=== PATIENT | male | born 2000 | race Caucasian/White ===

== ENCOUNTER → 2020-08-05 | Outpatient (CLI) | payer BC ==
[~2020-08-05] MED LIST: ZOFR4TAB16 PO
== END ==
LOC: M OUTALCOH 08:57
PROVIDERS: ATTEND Psychiatry & Neurology Psychiatry
DX: F11.20 Opioid dependence, uncomplicated (principal)

== ENCOUNTER 2020-08-10 10:10 | Emergency (ER) | payer BC ==
[~2020-08-10] VITALS: Ht 162.6 cm; Wt 51.4 kg
--- OUTSIDE RECORDS SUMMARY | 2020-08-10 11:06 | CCD ---
Author Author [facility] Organization [facility] Address Unknown Phone Unavailable Support Name Relationship Address Phone ULISSES ARDON Next Of Kin [address] [place] [address] [place] [address] REHAN SANTIAGO Next Of Kin Unknown Re-disclosure Warning The records that you are about to access may contain information from federally-assisted alcohol or drug abuse programs. If such information is present, then the following federally mandated warning applies: This information has been disclosed to you from records protected by federal confidentiality rules (42 CFR part 2). The federal rules prohibit you from making any further disclosure of this information unless further disclosure is expressly permitted by the written consent of the person to whom it pertains or as otherwise permitted by 42 CFR part 2. A general authorization for the release of medical or other information is NOT sufficient for this purpose. The Federal rules restrict any use of the information to criminally investigate or prosecute any alcohol or drug abuse patient.The records that you are about to access may contain highly sensitive health information, the redisclosure of which is protected by Article 27-F of the [facility] Public Health law. If you continue you may have access to information: Regarding HIV / AIDS; Provided by facilities licensed or operated by the [facility] Office of Mental Health; or Provided by the [facility] Office for People With Developmental Disabilities. If such information is present, then the following [facility] mandated warning applies: This information has been disclosed to you from confidential records which are protected by state law. State law prohibits you from making any further disclosure of this information without the specific written consent of the person to whom it pertains, or as otherwise permitted by law. Any unauthorized further disclosure in violation of state law may result in a fine or assisted sentence or both. A general authorization for the release of medical or other information is NOT sufficient authorization for further disc losure. Encounters Encounter Providers Location Date Indications Data Source(s ) Outpatient ALL 04/23/2020 05:49:03 PM EDT [facility] Outpatient ALL 04/23/2020 09:52:03 AM EDT [facility] Outpatient ALL 04/23/2020 09:51:02 AM EDT [facility] Insurance Providers Payer name Policy type / Coverage type Policy ID Covered republican ID Covered republican's relationship to hernandez Policy Hernandez Plan Information [facility] HMO [id number] [employer] [place] 306/806 [id number] SP [id number] Problems, Conditions, and Diagnoses Code Display Name Description Problem Type Effective Dates Data Source(s) V01.79 Contact with and (suspected) exposure to other viral communicable diseases Contact with and (suspected) exposure to other viral communicable diseases 04/23/2020 09:50:20 AM EDT [facility] Results ID Date Data Source [id number] 04/23/2020 10:32:26 AM EDT [facility] Labs In-House Lab TestsDate/Time Collect ed: April 23, 2020 10:32 AMComments: COVID test conducted in left nostril PT tolerated well. Román Gargjeffrey ROTHMAN, April 23, 2020 10:33 AMAssessment & Plan Orders:Specimen Handling [[id number]] Name Value Range Interpretation Code Description Data Anupama rce(s) Supporting Document(s) ID Date Data Source [id number] 04/23/2020 09:15:00 AM EDT [facility] Name Value Range Interpretation Code Description Data Anupama rce(s) Supporting Document(s) SARS-COV-2 RNA RESP QL SAM+PROBE [facility] This lab was ordered by [facility] and reported by [facility]. Procedure
[2020-08-10] MEDS ORDERED: ZOFR4TAB16 PO (12:51)
[2020-08-10] MEDS ORDERED: cloNIDine HCL 0.1 MG/24 HR PATCH TOP ONE (13:00)
[2020-08-10 13:22] VITALS: BP 138/74
[2020-08-10 13:23] VITALS: BP 138/74
== END 2020-08-10 13:24 | disposition home or self-care (01) ==
LOC: M ED 10:10
DX: F11.23 Opioid dependence with withdrawal (principal)

== ENCOUNTER 2020-09-01 15:00 | Outpatient (RCR) | payer BC | END 2020-09-06 | LOC: M OUTALCOH 15:00 | PROVIDERS: ATTEND Psychiatry & Neurology Psychiatry | DX: F11.20 Opioid dependence, uncomplicated (principal); F17.200 Nicotine dependence, unspecified, uncomplicated ==

== ENCOUNTER 2020-09-08 15:11 | Outpatient (RCR) | payer BC | END 2020-10-07 | LOC: M OUTALCOH 15:11 | PROVIDERS: ATTEND Psychiatry & Neurology Psychiatry | DX: F11.20 Opioid dependence, uncomplicated (principal); F17.200 Nicotine dependence, unspecified, uncomplicated ==

== ENCOUNTER → 2021-09-29 | Outpatient (CLI) | payer BC ==
[2021-09-29 11:49] LABS: HEMATOCRIT 41.5 % (42.0-52.0); HEMOGLOBIN 14.3 g/dl (13.5-17.5); MEAN CORPUSCULAR HEMOGLOBIN 29.9 pg (27.0-33.0); MEAN CORPUSCULAR HGB CONC 34.5 g/dl (32.0-36.5); MEAN CORPUSCULAR VOLUME 86.8 fl (80.0-96.0); PLATELET COUNT, AUTOMATED 335 10^3/uL (150-450); RED BLOOD COUNT 4.78 10^6/uL (4.30-6.10); WHITE BLOOD COUNT 10.1 10^3/uL (4.0-10.0)
[2021-09-29 12:13] LABS: ALBUMIN 3.9 GM/DL (3.2-5.2); ALT/SGPT 57 U/L (12-78); BILIRUBIN,TOTAL 0.3 MG/DL (0.2-1.0); BLOOD UREA NITROGEN 12 MG/DL (7-18); CALCIUM LEVEL 9.4 MG/DL (8.5-10.1); CARBON DIOXIDE LEVEL 31 MEQ/L (21-32); CHLORIDE LEVEL 105 MEQ/L (98-107); CREATININE FOR GFR 0.88 MG/DL (0.70-1.30); GLOMERULAR FILTRATION RATE > 60.0 (>60); GLUCOSE, FASTING 75 MG/DL (70-100); POTASSIUM SERUM 4.5 MEQ/L (3.5-5.1); SODIUM LEVEL 139 MEQ/L (136-145); TOTAL PROTEIN 6.9 GM/DL (6.4-8.2)
[2021-09-29 12:23] LABS: HEPATITIS B SURFACE ANTIGEN NEGATIVE (NEGATIVE)
[2021-09-29 12:52] LABS: HEPATITIS C VIRUS ABY INDEX 0.2 INDEX (<0.8); HIV 1&2 SCREEN CENTAUR NEGATIVE (NEGATIVE)
[2021-09-29 12:55] LABS: GC DNA AMPLIFICATION NEGATIVE (NEGATIVE)
== END ==
LOC: M PLALAB 08:13
PROVIDERS: ATTEND Family Medicine
DX: F11.20 Opioid dependence, uncomplicated (principal)

== ENCOUNTER 2022-05-30 08:22 | Emergency (ER) | payer BC ==
[~2022-05-30] VITALS: Ht 162.6 cm; Wt 57.9 kg
[2022-05-30] MEDS ORDERED: BUPR300T92 (08:38)
[2022-05-30] MEDS ORDERED: DOXA1TAB49 (08:38)
[2022-05-30] MEDS ORDERED: IBUP-1022 (08:38)
[2022-05-30] MEDS ORDERED: QUET1TAB17 (08:38)
[2022-05-30] MEDS ORDERED: ARIP1TAB10 (08:38)
[2022-05-30] MEDS ORDERED: ACET1TAB55 (08:38)
[2022-05-30] MEDS ORDERED: SUBO12MI SL (08:40)
[2022-05-30] MEDS ORDERED: ACETAMINOPHEN 325 MG TAB PO ONE (09:55)
[2022-05-30] MEDS ORDERED: OSEL75CA2 PO (10:00)
[2022-05-30 10:28] VITALS: BP 115/59
== END 2022-05-30 10:29 | disposition home or self-care (01) ==
LOC: M ED 08:22
DX: J09.X2 Influenza due to identified novel influenza A virus with other respiratory manifestations (principal); Z87.891 Personal history of nicotine dependence